=== PATIENT | male | born 1945 ===

== ENCOUNTER 2021-09-24 06:15 | Day surgery (SDC) | payer OTHER ==
[~2021-09-24 06:15] MED LIST: ENALAPRIL MALEA10 MG PO; EZETIMIBE10 MG PO; FENOFIBRA PO; FINASTERIDE5 MG PO; SYNTHROID50 MCG PO
== END 2021-09-24 11:50 | disposition home or self-care (01) ==
LOC: CIR.AMB 06:15
PROVIDERS: ATTEND Surgery Surgery of the Hand
DX: M65.841 Other synovitis and tenosynovitis, right hand (principal); Z20.822 Contact with and (suspected) exposure to COVID-19